=== PATIENT | female | born 1940 | race Caucasian/White ===

== ENCOUNTER 2016-07-10 09:57 | Outpatient (CLI) | payer OTHER ==
[~2016-07-10 09:57] MED LIST: CORDARONE200 MG PO; LOPRESSOR25 MG PO; ONDANSETRON4 MG/2 ML IV; VICODIN EQUIVAL1 TAB PO; XARELTO10 MG PO
--- NOTE | 2016-07-10 11:37 | DIAGNOSTIC IMAGING REPORT ---
PROCEDURE: MG BILATERAL SCREENING W/CAD INDICATION: Screening. Baseline. TECHNIQUE: Bilateral CC and MLO digital views. COMPARISON: None. FINDINGS: Computer-aided detection applied. Moderately dense. Left axillary pacemaker obscures axillary tissues. No evidence of mass or suspicious calcification. IMPRESSION: 1. Negative mammogram RESULT CODE: 1- Negative. A. A negative report should not delay biopsy if a dominant or clinically suspicious mass is present. 10-15% of cancers are not identified by x-ray. B. A negative report may reinforce clinical impression. C. Adenosis and dense breasts may obscure an underlying neoplasm. D. False positive reports average 6-10%. E.. A yearly screening mammogram is recommended. A reminder letter will be scheduled.
== END 2016-07-10 23:00 ==
LOC: MAM SRH 09:57
DX: Z12.31 Encounter for screening mammogram for malignant neoplasm of breast (principal)

== ENCOUNTER 2016-08-31 04:23 | Inpatient (IN) | payer OTHER ==
[~2016-08-31] VITALS: Ht 167.6 cm; Wt 72.3 kg
--- NOTE | 2016-08-31 07:13 | DIAGNOSTIC IMAGING REPORT ---
PROCEDURE: XR CHEST 1 VIEW INDICATION: COUGH TECHNIQUE: Portable AP view 05:12 a.m. COMPARISON: Chest x-ray 08/30/2016 FINDINGS: Dual lead pacemaker with mild cardiomegaly. Mild pulmonary vascular congestion with new mild alveolar opacities throughout both lungs. Tortuous aorta. Stable right paratracheal soft tissue density. Bones are unremarkable. IMPRESSION: 1. Cardiomegaly with pulmonary vascular congestion and new mild bilateral alveolar opacities suggestive of edema versus pneumonia. Correlate clinically. 2. Pacemaker
--- NOTE | 2016-08-31 07:33 | ED ORDER SUMMARY ---
..... Patient: GAVI HARRIS OrderSheet [facility] VisitID: [id number] [place] [address] 76y, F Registration Date/Time: 08/31/2016 ORDER SHEET Weight: 74.8 kg (stated) Allergies: No Known Drug Allergy GENERAL ORDERS: CBC w Diff Urgent (04:44 08/31/2016 DDavis R.N. per protocol) (4:46 DDavis R.N.) CMP Urgent (04:44 08/31/2016 DDavis R.N. per protocol) (4:46 DDavis R.N.) Chest 1V Urgent (04:46 08/31/2016 DDavis R.N. per protocol) (Ack 5:03 SRedmond) (5:16 Paddy) PCT (Procalcitonin) Urgent (05:08 08/31/2016 Lucian STEPHENS) (Ack 5:08 SRedmond) (5:09 DDavis R.N.) Adjuster Piano Action (Continuous) (05:17 08/31/2016 Lucian STEPHENS) (Ack 5:20 SRedmond) (5:28 DDavis R.N.) BNP Urgent (05:17 08/31/2016 Lucian STEPHENS) (Ack 5:20 SRedmond) (5:27 DDavis R.N.) CPK Urgent (05:17 08/31/2016 Lucian STEPHENS) (Ack 5:20 SRedmond) (5:27 DDavis R.N.) Troponin-I Urgent (05:17 08/31/2016 Lucian STEPHENS) (Ack 5:20 SRedmond) (5:27 DDavis R.N.) PTT Urgent (05:08/31/2016 Lucian STEPHENS) (Ack 5:20 SRedmond) (5:27 DDavis R.N.) PT with INR Urgent (05:08/31/2016 Lucian STEPHENS) (Ack 5:20 SRedmond) (5:27 DDavis R.N.) Oxygen (2 L/min) (NC) (05:08/31/2016 Lucian STEPHENS) (Ack 5:20 Skylar) (5:27 DDavis R.N.) Pulse oximeter (05:17 08/31/2016 Lucian STEPHENS) (Ack 5:20 Skylar) (5:27 DDavis R.N.) EKG - ER Stat (05:17 08/31/2016 Lucian STEPHENS) (Ack 5:20 Skylar) (5:27 DDavis R.N.) UA-Culture if indicated Urgent (06:08 08/31/2016 DDavis R.N. per protocol) (6:08 DDavis R.N.) Rapid Influenza Screen (Nasal Pharyngeal) (pharmacy technician inpatient) Urgent (07:31 08/31/2016 Lucian STEPHENS) (7:47 LWhalen R.N.) CT Abd/Pel wo Cont Urgent (08:12 08/31/2016 Yaritza verbal order read back to Radha Malik) (Ack 8:28 Yaritza) (8:59 LWhalen R.N.) Blood Culture (No) (N/A) Urgent (08:38 08/31/2016 Lucian STEPHENS) (Ack 8:45 Yaritza) (9:15 Yaritza) MEDICATION ORDERS: Albuterol Neb w Atrovent 1 unit dose (NOW) (04:40 08/31/2016 DDavis R.N. per protocol) (4:55 ASingh) IV FLUIDS: IV Saline Lock (04:41 08/31/2016 DDavis R.N. per protocol) (4:46 DDavis R.N.) Lasix IV 20 mg (NOW) (05:44 08/31/2016 Lucian STEPHENS) (Ack 5:44 DDavis R.N.) (5:55 DDavis R.N.) Ceftriaxone IV 2 gm/50mL (NOW) (08:37 08/31/2016 Lucian STEPHENS) Zithromax IV 500 mg/250 mL (NOW) (08:38 08/31/2016 Lucian STEPHENS) ORDER SHEET NOTES: Reason for Study: CHF [Electronically signed by Genoveva Benjamin R.N. (09:54 08/31/2016)] [Electronically signed by Howie Garcia MD (21:17 09/04/2016)] [Electronically locked/signed by Genoveva Benjamin R.N. (09:54 08/31/2016)]
--- NOTE | 2016-08-31 07:33 | ED ORDER SUMMARY ---
..... Patient: GAVI HARRIS OrderSheet [facility] VisitID: [id number] [place] [address] 76y, F Registration Date/Time: 08/31/2016 ORDER SHEET Weight: 74.8 kg (stated) Allergies: No Known Drug Allergy GENERAL ORDERS: CBC w Diff Urgent (04:44 08/31/2016 DDavis R.N. per protocol) (4:46 DDavis R.N.) CMP Urgent (04:44 08/31/2016 DDavis R.N. per protocol) (4:46 DDavis R.N.) Chest 1V Urgent (04:46 08/31/2016 DDavis R.N. per protocol) (Ack 5:03 SRedmond) (5:16 Paddy) PCT (Procalcitonin) Urgent (05:08 08/31/2016 Lucian STEPHENS) (Ack 5:08 SRedmond) (5:09 DDavis R.N.) Stock Trader (Continuous) (05:17 08/31/2016 Lucian SETPHENS) (Ack 5:20 SRedmond) (5:28 DDavis R.N.) BNP Urgent (05:17 08/31/2016 Lucian STEPHENS) (Ack 5:20 SRedmond) (5:27 DDavis R.N.) CPK Urgent (05:17 08/31/2016 Lucian STEPHENS) (Ack 5:20 SRedmond) (5:27 DDavis R.N.) Troponin-I Urgent (05:17 08/31/2016 Lucian STEPHENS) (Ack 5:20 SRedmond) (5:27 DDavis R.N.) PTT Urgent (05:08/31/2016 Lucian STEPHENS) (Ack 5:20 SRedmond) (5:27 DDavis R.N.) PT with INR Urgent (05:08/31/2016 Lucian STEPHENS) (Ack 5:20 SRedmond) (5:27 DDavis R.N.) Oxygen (2 L/min) (NC) (05:08/31/2016 Lucina STEPHENS) (Ack 5:20 Skylar) (5:27 DDavis R.N.) Pulse oximeter (05:17 08/31/2016 Lucian STEPHENS) (Ack 5:20 Skylar) (5:27 DDavis R.N.) EKG - ER Stat (05:17 08/31/2016 Lucian STEPHENS) (Ack 5:20 Skylar) (5:27 DDavis R.N.) UA-Culture if indicated Urgent (06:08 08/31/2016 DDavis R.N. per protocol) (6:08 DDavis R.N.) Rapid Influenza Screen (Nasal Pharyngeal) (inpatient pharmacist) Urgent (07:31 08/31/2016 Lucian STEPHENS) (7:47 LWhalen R.N.) CT Abd/Pel wo Cont Urgent (08:12 08/31/2016 Yaritza verbal order read back to Radha Malik) (Ack 8:28 Yaritza) (8:59 LWhalen R.N.) Blood Culture (No) (N/A) Urgent (08:38 08/31/2016 Lucian STEPHENS) (Ack 8:45 Yaritza) (9:15 Yartiza) MEDICATION ORDERS: Albuterol Neb w Atrovent 1 unit dose (NOW) (04:40 08/31/2016 DDavis R.N. per protocol) (4:55 ASingh) IV FLUIDS: IV Saline Lock (04:41 08/31/2016 DDavis R.N. per protocol) (4:46 DDavis R.N.) Lasix IV 20 mg (NOW) (05:44 08/31/2016 Lucian STEPHENS) (Ack 5:44 DDavis R.N.) (5:55 DDavis R.N.) Ceftriaxone IV 2 gm/50mL (NOW) (08:37 08/31/2016 Lucian STEPHENS) Zithromax IV 500 mg/250 mL (NOW) (08:38 08/31/2016 Lucian STEPHENS) ORDER SHEET NOTES: Reason for Study: CHF [Electronically signed by Genoveva Benjamin R.N. (09:54 08/31/2016)] [Electronically signed by Howie Garcia MD (21:17 09/04/2016)] [Electronically locked/signed by Genoveva Benjamin R.N. (09:54 08/31/2016)]
--- NOTE | 2016-08-31 07:33 | ED CLINICAL REPORT ---
Clinical Report - Physicians/[facility] Levels [facility] [address] [place] [address] 08/31/2016 4:23 Patient: GAVI HARRIS Time Seen: 04:41. Arrived- By private vehicle. Historian- patient. HISTORY OF PRESENT ILLNESS Chief Complaint: COUGH. This started several days ago and is still present. It was gradual in onset and has been constant and waxing/waning. The illness is described as moderate. The patient has had thick, white sputum, a cough, nasal congestion and a nasal discharge. No difficulty breathing, chest discomfort or pain or chills. She has had fever (yesterday). Recent medical care: The patient was seen recently at another facility in a clinic. Seen for similar symptoms. ( seen by Dr. Pagan yesterday). REVIEW OF SYSTEMS No chills, sweats, calf pain, palpitations or abdominal pain. No black stools, bloody stools, constipation, diarrhea or urinary problems. She has had fever (yesterday). She has had mild vomiting. The vomiting was post-tussive. she complains of L inguinal strain with coughing. All systems otherwise negative, except as recorded above. PAST HISTORY Medications: Xarelto Oral. Amiodarone HCL Oral (1 tab daily, pt unsure of dose ). Metoprolol Tartrate Oral (2 tabs, patient unsure of dose ). Allergies: No Known Drug Allergy. SOCIAL HISTORY Never smoker. FAMILY HISTORY Denies family medical history. ADDITIONAL NOTES The nursing notes have been reviewed. PHYSICAL EXAM Vital Signs: 08/31/2016 04:34 BP: 147/74. HR: 83. RR: 28. O2 saturation: 92%. Temp: 101.5 F. Pain level now: 0/10. Have been reviewed. Appearance: Alert. Eyes: Pupils equal, round and reactive to light. ENT: Pharynx normal. Neck: Normal inspection. Neck supple. No JVD. CVS: 3/6 systolic murmur. Respiratory: Decreased breath sounds. Wheezing present. Abdomen: Soft and nontender. No organomegaly. Back: Normal inspection. Skin: Skin warm and dry. Normal skin color. Normal skin turgor. Extremities: Extremities exhibit normal ROM. No calf tenderness. No lower extremity edema. LABS, X-RAYS, AND EKG EKG: Ventricular paced rhythm. EKG unchanged when compared with prior EKG. (20 Jan 2015). Chest X-ray: (IMPRESSION: 1. Cardiomegaly with pulmonary vascular congestion and new mild bilateral alveolar opacities suggestive of edema versus pneumonia. Correlate clinically. 2. Pacemaker). The X-rays were interpreted by the radiologist and contemporaneously by me. A comparison with prior films reveals that the findings are unchanged (08/30/16 - ordered by Dr. Pagan). Laboratory Tests: UA-Culture if indicated: (ELMA: 08/31/2016 06:00) ( MsgRcvd 08/31/2016 06:19) Final results Test Result Flag Units (Reference) URINE COLOR YELLOW URINE APPEARANCE CLEAR URINE GLUCOSE NEGATIVE (NEGATIVE) URINE BILIRUBIN NEGATIVE (NEGATIVE) URINE KETONE NEGATIVE (NEGATIVE) URINE SPECIFIC GRAVITY 1.020 (1.010-1.030) URINE PH 6.0 (5.0-8.0) URINE PROTEIN TRACE (NEGATIVE) URINE UROBILINOGEN 0.2 EU/dL (0.2-1.0) URINE NITRITE NEGATIVE (NEGATIVE) URINE BLOOD 1+ (NEGATIVE) URINE LEUK ESTERASE POSITIVE (NEGATIVE) URINE RBC 1-3 rbc/hpf (0-1) URINE WBC 1-3 wbc/hpf (0-1) URINE EPITHELIAL CELLS 1-3 EPI/hpf (0-5) URINE BACTERIA FEW (1+) (NONE SEEN) URINE COMMENT CULTURE INDICATED URINE CULTURES ARE SET-UP BASED ON THE FOLLOWING CRITERIA:POSITIVE NITRITEPOSITIVE LEUKOCYTE ESTERASEGREATER THAN 10 WHITE BLOOD CELLSMODERATE (2+) OR GREATER BACTERIA CBC w Diff: (ELMA: 08/31/2016 04:40) ( MsgRcvd 08/31/2016 04:57) Final results Test Result Flag Units (Reference) WHITE BLOOD COUNT 5.3 K/uL (4.5-11.5) RED BLOOD COUNT 4.58 M/uL (4.00-5.20) HEMOGLOBIN 13.3 gm/dL (12.0-16.0) HEMATOCRIT 40.3 % (36.0-46.0) MEAN CELL VOLUME 88 fL (80-100) MEAN CORPUSCULAR HGB 29 pg (26-34) MEAN CORPUSCULAR HGB CONC 33 g/dL (31-37) RED CELL DISTRIBUTION WIDTH 14.6 % (11.6-14.8) PLATELET COUNT 158 K/uL (150-400) NEUTROPHIL % 79.3 H % (50-75) LYMPH % 11.6 L % (25-40) MONO % 8.3 % (3-14) EOSINOPHIL % 0.6 % (0-4) BASOPHIL % 0.2 % (0-2) PT with INR: (ELMA: 08/31/2016 04:40) ( [facility] 08/31/2016 05:28) Final results Test Result Flag Units (Reference) INR 1.0 (0.8-1.2) Low Intensity Therapy: INR 1.5-2.0 PT range 18.5-23.1Mod.Intensity Therapy: INR 2.0-3.0 PT range 23.1-31.5High Intensity Therapy: INR 2.5-3.5 PT range 27.4-35.5High Intensity Therapy 2: INR 3.0-4.0 PT range 31.5-39.3 APTT 28 SECONDS (24-34) BNP: (ELMA: 08/31/2016 04:40) ( [facility] 08/31/2016 05:39) Final results Test Result Flag Units (Reference) B-TYPE NATRIURETIC PEPTIDE 1140 H pg/ml (5-100) CPK: (ELMA: 08/31/2016 04:40) ( [facility] 08/31/2016 05:37) Final results Test Result Flag Units (Reference) CPK 214 U/L (24-260) TROPONIN I <0.05 ng/mL (0.00-1.5) TROPONIN REFERENCE RANGE:<0.1 NEGATIVE0.1-1.5 INDETERMINANT>1.5 POSITIVE [id number]: (ELMA: 08/31/2016 04:40) ( MsgRcvd 08/31/2016 05:38) Final results Test Result Flag Units (Reference) PROCALCITONIN <0.5 ng/mL (0-0.5) PCT Concentration: Interpretation : Risk/option for action PCT <=0.5 ng/mL : Systemic : Low risk forinfection(sepsis): progression to severeis not likely. : systemic infection.Local bacterial : CAUTION-PCT levelsinfection is : below 0.5 ng/mL do notpossible. : exclude an infection,because localizedinfections (withoutsystemic signs) may beassociated with suchlow levels. If PCT ismeasured very earlyafter a bacterialchallenge (usually <6hours), these valuesmay still be low. Inthis case PCT shouldbe re-assessed 6-24hours later. PCT >0.5 and : Systemic infection: Moderate risk for<= 2 ng/mL : (sepsis) is : progression to severepossible, but : systemic infection.other conditions : The patient should beare known to : closely monitoredelevate PCT. : both clinically andby re-assessing PCTwithin 6-24 hours. PCT > 2 ng/mL : Systemic infection: High risk for(sepsis) is likely: progression to severeunless other : systemic infection.causes are known. : PCT >= 10 ng/mL : Important systemic: High likelihood ofinflammatory : severe sepsis orresponse, almost : septic shock.exclusively due to:severe bacterial :sepsis or septic :shock. : CMP: (ELMA: 08/31/2016 04:40) ( MsgRcvd 08/31/2016 05:04) Final results Test Result Flag Units (Reference) GLUCOSE 140 H mg/dL (70-110) BUN 11 mg/dL (7-18) CREATININE 0.7 mg/dL (0.6-1.3) Estimated GFR >60 mL/min Estimated GFR- >60 mL/min Note: Persistent reduction over 3 months in eGFR<60 mL/min/1.73 m2 defines CKD. Patients with eGFR values>=60 mL/min/1.73 m2 may also have CKD if evidence ofpersistent proteinuria. Additional information may be foundat www.kidney.org. SODIUM 140 mmol/L (136-145) POTASSIUM 3.5 mmol/L (3.5-5.1) CHLORIDE 104 mmol/L (98-107) CARBON DIOXIDE 27 mmol/L (21-32) CALCIUM 8.7 mg/dL (8.5-10.1) TOTAL PROTEIN 7.1 g/dL (6.4-8.2) ALBUMIN 3.3 g/dL (3.3-5.0) BILIRUBIN, TOTAL 0.6 mg/dL (0.0-1.0) ALKALINE PHOSPHATASE 77 U/L (46-116) AST (SGOT) 20 U/L (15-37) ALT (SGPT) 22 U/L (12-78) Rapid Influenza Screen: (ELMA: 08/31/2016 07:40) ( MsgRcvd 08/31/2016 08:00) Final results SPECIMEN DESCRIPTION: DESK INTERVIEWER Test Result Flag Units (Reference) RAPID INFLUENZA SCREEN DATE: 08/31/16 INFLUENZA A: NEGATIVE SCREEN FOR INFLUENZA A INFLUENZA B: NEGATIVE SCREEN FOR INFLUENZA B . PROGRESS AND PROCEDURES Discussed case with patient's primary care provider, (Latasha). Reviewed test results and need for additional work-up. Agreed upon treatment plan, need for patient follow-up and decision to admit. Health care provider will see patient in ED. Patient/family counseled. Old medical records reviewed. Disposition: Admitted. CLINICAL IMPRESSION Congestive heart failure. Pneumonia. (Electronically signed by Howie Garcia MD 09/04/2016 21:17)
--- NOTE | 2016-08-31 07:33 | ED NURSING NOTES ---
Clinical Report - Nurses [facility] [address] [place] [address] 08/31/2016 4:23 Patient: GAVI HARRIS TRIAGE Triage time 04:28. --04:31 Benjamin Haro R.N. Acuity: LEVEL 3. Chief Complaint: (coughing since "Saturday"). Alert. ESPERANZA COMA SCORE: [place] Coma Scale: 15- eyes open spontaneously (4); best verbal response- oriented x 4 (5); best motor response- obeys commands (6). --04:37 Benjamin Haro R.N. 04:34 08/31/16. BP: 147/74. HR: 83. RR: 28 (regular and labored). O2 saturation: 92%. Temp: 101.5 F (oral). Pain level now: 0/10. --04:37 Benjamin Haro R.N. Weight: 74.8 kg stated. Height/Length: 64 inches Estimated. BMI: 28.3. --04:29 Benjamin Haro R.N. Medications Metoprolol Tartrate Oral 50 mg ( ). --04:30 Genoveva Benjamin R.N. Amiodarone HCL Oral (1 tab daily, pt unsure of dose ). --04:30 Benjamin Haro R.N. Xarelto Oral (Tablet 20 mg) 1 tablet. --04:32 Genoveva Benjamin R.N. Ventolin HFA Inhalation. --09:02 Genoveva Benjamin R.N. MiraLax Oral. --09:03 Genoveva Benjamin R.N. Losartan Potassium Oral 50 mg, daily. --09:03 Genoveva Benjamin R.N. FLUoxetine HCl Oral 40 mg, daily. --09:04 Genoveva Benjamin R.N. PredniSONE Oral 40 mg, daily. --09:04 Genoveva Benjamin R.N. Furosemide Oral 20 mg, daily. --09:05 Genoveva Benjamin R.N. The following entry was struck and corrected by Genoveva Benjamin R.N., 09:03 (08/31/16) Reason for correction - other(correction). <<STRICKEN ENTRY-- Xarelto Oral. --04:32 Benjamin Haro R.N. --END STRIKE>> The following entry was struck and corrected by Genoveva Benjamin R.N., 09:02 (08/31/16) Reason for correction - other(correction). <<STRICKEN ENTRY-- Metoprolol Tartrate Oral (2 tabs, patient unsure of dose ). --04:30 Benjamin Haro R.N. --END STRIKE>>. Allergies No Known Drug Allergy. --04:30 Benjamin Haro R.N. History Arrived by private vehicle. Historian: patient. Accompanied by family. --04:31 Benjamin Haro R.N. The patient has had vomiting. SOCIAL HX: Never smoker. No alcohol use or drug use. FALL RISK ASSESSMENT: Fall risk assessment completed. No fall risk identified. NUTRITIONAL RISK ASSESSMENT: The nutritional risk assessment revealed no deficiencies. FUNCTIONAL ASSESSMENT: Functional assessment: no impairments noted. LEARNING NEEDS ASSESSMENT: The learning needs assessment revealed no barriers. SKIN INTEGRITY ASSESSMENT: Skin integrity risk assessment completed. No skin integrity risk identified. --04:37 Benjamin Haro R.N. ( Patient states that she has been coughing so much that the coughing is starting to make her vomit). --04:38 Benjamin Haro R.N. PROBLEMS: Diarrhea. Pulmonary Embolism. Chest Pain. Gastroesophageal Reflux. Pacemaker. Atrial Fibrillation. Hypertension. --04:31 Benjamin Haro R.N. DVT - Deep Venous Thrombosis. --04:31 Benjamin Haro R.N. ADDITIONAL SURGERIES: . Knee Surgery. Pace maker implant . --04:31 Benjamin Haro R.N. Interventions ID band on patient. To treatment room. --04:37 Benjamin Haro R.N. PHYSICAL ASSESSMENT To room via wheelchair. GENERAL / NEURO / PSYCH: Alert. Oriented X 4. RESPIRATORY: Mild respiratory distress. Decreased breath sounds diffusely over both lungs. Expiratory and inspiratory bilateral wheezes diffusely. CVS: Capillary refill less than 2 seconds. SKIN: Skin is warm and dry. --04:39 Benjamin Haro R.N. <<STRICKEN ENTRY-- ( pt states having lower left flank/abdominal pain also). --05:00 Benjamin Haro R.N. --END STRIKE>> Correction --05:04 Benjamin Haro R.N. ( After the breathing treatment. the patient states that her breathing feels better.). --05:00 Benjamin Haro R.N. ( Pt states that her left lower abdomen area hurts when she toughs, started yesterday.). --05:07 Benjamin Haro R.N. NURSING PROGRESS NOTES bus driver/monitor, pulse oximeter and NIBP monitor placed on patient. Patient gowned. Head of bed elevated. Two patient identifiers checked. Call light placed in reach. Side rails up x 1. Bed placed in lowest position. Brakes of bed on. Patient ready for evaluation- chart flagged. Patient waiting for evaluation. --04:39 Benjamin Haro R.N. 04:41 08/31/2016 Site #1 started via IV in the left antecubital space with an 20g angiocath, with aseptic technique and good blood return; one attempt. Blood drawn: rainbow set. Labeled in the presence of the patient and sent to the lab. Saline lock flushed with 10 mL saline (Started by ALEKSANDR Lamb). --04:46 Benjamin Haro R.N. EKG time: (526). EKG was ordered, performed by a tech and shown to the ED physician. --05:29 Rashad Pizarro ER Regional Coordinator ( Patient on bus driver/monitor.). --05:35 Benjamin Haro R.N. 05:50 08/31/2016 Lasix IVP 20 mg given over 2 minute(s) via site #1. Allergies verified and confirmed 5 rights. IV patency established. IV site checked: no pain, redness, or swelling. IV flushed thoroughly pre- and post-medication administration. IVP given by RN. --05:55 Benjamin Haro R.N. ( Report given to Genoveva Henry RN). --07:02 Benjamin Haro R.N. 08:30 08/31/16. BP: 134/67. HR: 79. RR: 22. O2 saturation: 96% on nasal cannula at 2 liters/minute. Temp: 99.2 F. 08:00 08/31/16. BP: 122/58. HR: 78. RR: 18. O2 saturation: 96%. 07:30 08/31/16. BP: 130/58. HR: 80. RR: 18. O2 saturation: 97%. --09:17 Genoveva Benjamin R.N. 08:30 08/31/16. ( Waiting for blood cultures before antibiotics given.). --09:53 Genoveva Benjamin R.N. 09:05 08/31/16. ( Lab here to draw cultures.). --09:54 Genoveva Benjamin R.N. Intake & Output Urine, with return of 200 mL yellow-colored clear urine. --06:19 Arias Savage DISPOSITION / DISCHARGE 09:10 08/31/2016 Site #[address] upon admission; patent. Good blood return present. Converted to saline lock and flushed with 10 mL saline; flushes easily. --09:52 Genoveva Benjamin R.N. Departure time: 09:Aug 31 2016. Admitted to the Critical Care Unit. --09:52 Genoveva Benjamin R.N. 08:30 08/31/16. BP: 134/67. HR: 79. RR: 22. O2 saturation: 96% on nasal cannula at 2 liters/minute. Temp: 99.2 F. --09:52 Genoveva Benjamin R.N. Locked/Released at 08/31/2016 9:54 by Genoveva Benjamin R.N.
--- NOTE | 2016-08-31 07:33 | ED NURSING NOTES ---
Clinical Report - Nurses [facility] [address] [place] [address] 08/31/2016 4:23 Patient: GAVI HARRIS TRIAGE Triage time 04:28. --04:31 Benjamin Haro R.N. Acuity: LEVEL 3. Chief Complaint: (coughing since "Saturday"). Alert. ESPERANZA COMA SCORE: [place] Coma Scale: 15- eyes open spontaneously (4); best verbal response- oriented x 4 (5); best motor response- obeys commands (6). --04:37 Benjamin Haro R.N. 04:34 08/31/16. BP: 147/74. HR: 83. RR: 28 (regular and labored). O2 saturation: 92%. Temp: 101.5 F (oral). Pain level now: 0/10. --04:37 Benjamin Haro R.N. Weight: 74.8 kg stated. Height/Length: 64 inches Estimated. BMI: 28.3. --04:29 Benjamin Haro R.N. Medications Metoprolol Tartrate Oral 50 mg ( ). --04:30 Genoveva Benjamin R.N. Amiodarone HCL Oral (1 tab daily, pt unsure of dose ). --04:30 Benjamin Haro R.N. Xarelto Oral (Tablet 20 mg) 1 tablet. --04:32 Genoveva Benjamin R.N. Ventolin HFA Inhalation. --09:02 Genoveva Benjamin R.N. MiraLax Oral. --09:03 Genoveva Benjamin R.N. Losartan Potassium Oral 50 mg, daily. --09:03 Genoveva Benjamin R.N. FLUoxetine HCl Oral 40 mg, daily. --09:04 Genoveva Benjamin R.N. PredniSONE Oral 40 mg, daily. --09:04 Genoveva Benjamin R.N. Furosemide Oral 20 mg, daily. --09:05 Genoveva Benjamin R.N. The following entry was struck and corrected by Genoveva Benjamin R.N., 09:03 (08/31/16) Reason for correction - other(correction). <<STRICKEN ENTRY-- Xarelto Oral. --04:32 Benjamin Haro R.N. --END STRIKE>> The following entry was struck and corrected by Genoveva Benjamin R.N., 09:02 (08/31/16) Reason for correction - other(correction). <<STRICKEN ENTRY-- Metoprolol Tartrate Oral (2 tabs, patient unsure of dose ). --04:30 Benjamin Haro R.N. --END STRIKE>>. Allergies No Known Drug Allergy. --04:30 Benjamin Haro R.N. History Arrived by private vehicle. Historian: patient. Accompanied by family. --04:31 Benjamin Haro R.N. The patient has had vomiting. SOCIAL HX: Never smoker. No alcohol use or drug use. FALL RISK ASSESSMENT: Fall risk assessment completed. No fall risk identified. NUTRITIONAL RISK ASSESSMENT: The nutritional risk assessment revealed no deficiencies. FUNCTIONAL ASSESSMENT: Functional assessment: no impairments noted. LEARNING NEEDS ASSESSMENT: The learning needs assessment revealed no barriers. SKIN INTEGRITY ASSESSMENT: Skin integrity risk assessment completed. No skin integrity risk identified. --04:37 Benjamin Haro R.N. ( Patient states that she has been coughing so much that the coughing is starting to make her vomit). --04:38 Benjamin Haro R.N. PROBLEMS: Diarrhea. Pulmonary Embolism. Chest Pain. Gastroesophageal Reflux. Pacemaker. Atrial Fibrillation. Hypertension. --04:31 Benjamin Haro R.N. DVT - Deep Venous Thrombosis. --04:31 Benjamin Haro R.N. ADDITIONAL SURGERIES: . Knee Surgery. Pace maker implant . --04:31 Benjamin Haro R.N. Interventions ID band on patient. To treatment room. --04:37 Benjamin Haro R.N. PHYSICAL ASSESSMENT To room via wheelchair. GENERAL / NEURO / PSYCH: Alert. Oriented X 4. RESPIRATORY: Mild respiratory distress. Decreased breath sounds diffusely over both lungs. Expiratory and inspiratory bilateral wheezes diffusely. CVS: Capillary refill less than 2 seconds. SKIN: Skin is warm and dry. --04:39 Benjamin Haro R.N. <<STRICKEN ENTRY-- ( pt states having lower left flank/abdominal pain also). --05:00 Benjamin Haro R.N. --END STRIKE>> Correction --05:04 Benjamin Haro R.N. ( After the breathing treatment. the patient states that her breathing feels better.). --05:00 Benjamin Haro R.N. ( Pt states that her left lower abdomen area hurts when she toughs, started yesterday.). --05:07 Benjamin Haro R.N. NURSING PROGRESS NOTES radiation monitor, pulse oximeter and NIBP monitor placed on patient. Patient gowned. Head of bed elevated. Two patient identifiers checked. Call light placed in reach. Side rails up x 1. Bed placed in lowest position. Brakes of bed on. Patient ready for evaluation- chart flagged. Patient waiting for evaluation. --04:39 Benjamin Haro R.N. 04:41 08/31/2016 Site #1 started via IV in the left antecubital space with an 20g angiocath, with aseptic technique and good blood return; one attempt. Blood drawn: rainbow set. Labeled in the presence of the patient and sent to the lab. Saline lock flushed with 10 mL saline (Started by ALEKSANDR Lamb). --04:46 Benjamin Haro R.N. EKG time: (526). EKG was ordered, performed by a tech and shown to the ED physician. --05:29 Rashad Pizarro ER Clinical Care Leader ( Patient on engine monitor.). --05:35 Benjamin Haro R.N. 05:50 08/31/2016 Lasix IVP 20 mg given over 2 minute(s) via site #1. Allergies verified and confirmed 5 rights. IV patency established. IV site checked: no pain, redness, or swelling. IV flushed thoroughly pre- and post-medication administration. IVP given by RN. --05:55 Benjamin Haro R.N. ( Report given to Genoveva Henry RN). --07:02 Benjamin Haro R.N. 08:30 08/31/16. BP: 134/67. HR: 79. RR: 22. O2 saturation: 96% on nasal cannula at 2 liters/minute. Temp: 99.2 F. 08:00 08/31/16. BP: 122/58. HR: 78. RR: 18. O2 saturation: 96%. 07:30 08/31/16. BP: 130/58. HR: 80. RR: 18. O2 saturation: 97%. --09:17 Genoveva Benjamin R.N. 08:30 08/31/16. ( Waiting for blood cultures before antibiotics given.). --09:53 Genoveva Benjamin R.N. 09:05 08/31/16. ( Lab here to draw cultures.). --09:54 Genoveva Benjamin R.N. Intake & Output Urine, with return of 200 mL yellow-colored clear urine. --06:19 Arias Savage DISPOSITION / DISCHARGE 09:10 08/31/2016 Site #[address] upon admission; patent. Good blood return present. Converted to saline lock and flushed with 10 mL saline; flushes easily. --09:52 Genoveva Benjamin R.N. Departure time: 09:Aug 31 2016. Admitted to the Critical Care Unit. --09:52 Genoveva Benjamin R.N. 08:30 08/31/16. BP: 134/67. HR: 79. RR: 22. O2 saturation: 96% on nasal cannula at 2 liters/minute. Temp: 99.2 F. --09:52 Genoveva Benjamin R.N. Locked/Released at 08/31/2016 9:54 by Genoveva Benjamin R.N.
--- NOTE | 2016-08-31 07:33 | ED CLINICAL REPORT ---
Clinical Report - Physicians/Mid Levels [facility] [address] [place] [address] 08/31/2016 4:23 Patient: GAVI HARRIS Time Seen: 04:41. Arrived- By private vehicle. Historian- patient. HISTORY OF PRESENT ILLNESS Chief Complaint: COUGH. This started several days ago and is still present. It was gradual in onset and has been constant and waxing/waning. The illness is described as moderate. The patient has had thick, white sputum, a cough, nasal congestion and a nasal discharge. No difficulty breathing, chest discomfort or pain or chills. She has had fever (yesterday). Recent medical care: The patient was seen recently at another facility in a clinic. Seen for similar symptoms. ( seen by Dr. Pagan yesterday). REVIEW OF SYSTEMS No chills, sweats, calf pain, palpitations or abdominal pain. No black stools, bloody stools, constipation, diarrhea or urinary problems. She has had fever (yesterday). She has had mild vomiting. The vomiting was post-tussive. she complains of L inguinal strain with coughing. All systems otherwise negative, except as recorded above. PAST HISTORY Medications: Xarelto Oral. Amiodarone HCL Oral (1 tab daily, pt unsure of dose ). Metoprolol Tartrate Oral (2 tabs, patient unsure of dose ). Allergies: No Known Drug Allergy. SOCIAL HISTORY Never smoker. FAMILY HISTORY Denies family medical history. ADDITIONAL NOTES The nursing notes have been reviewed. PHYSICAL EXAM Vital Signs: 08/31/2016 04:34 BP: 147/74. HR: 83. RR: 28. O2 saturation: 92%. Temp: 101.5 F. Pain level now: 0/10. Have been reviewed. Appearance: Alert. Eyes: Pupils equal, round and reactive to light. ENT: Pharynx normal. Neck: Normal inspection. Neck supple. No JVD. CVS: 3/6 systolic murmur. Respiratory: Decreased breath sounds. Wheezing present. Abdomen: Soft and nontender. No organomegaly. Back: Normal inspection. Skin: Skin warm and dry. Normal skin color. Normal skin turgor. Extremities: Extremities exhibit normal ROM. No calf tenderness. No lower extremity edema. LABS, X-RAYS, AND EKG EKG: Ventricular paced rhythm. EKG unchanged when compared with prior EKG. (20 Jan 2015). Chest X-ray: (IMPRESSION: 1. Cardiomegaly with pulmonary vascular congestion and new mild bilateral alveolar opacities suggestive of edema versus pneumonia. Correlate clinically. 2. Pacemaker). The X-rays were interpreted by the radiologist and contemporaneously by me. A comparison with prior films reveals that the findings are unchanged (08/30/16 - ordered by Dr. Pagan). Laboratory Tests: UA-Culture if indicated: (ELMA: 08/31/2016 06:00) ( MsgRcvd 08/31/2016 06:19) Final results Test Result Flag Units (Reference) URINE COLOR YELLOW URINE APPEARANCE CLEAR URINE GLUCOSE NEGATIVE (NEGATIVE) URINE BILIRUBIN NEGATIVE (NEGATIVE) URINE KETONE NEGATIVE (NEGATIVE) URINE SPECIFIC GRAVITY 1.020 (1.010-1.030) URINE PH 6.0 (5.0-8.0) URINE PROTEIN TRACE (NEGATIVE) URINE UROBILINOGEN 0.2 EU/dL (0.2-1.0) URINE NITRITE NEGATIVE (NEGATIVE) URINE BLOOD 1+ (NEGATIVE) URINE LEUK ESTERASE POSITIVE (NEGATIVE) URINE RBC 1-3 rbc/hpf (0-1) URINE WBC 1-3 wbc/hpf (0-1) URINE EPITHELIAL CELLS 1-3 EPI/hpf (0-5) URINE BACTERIA FEW (1+) (NONE SEEN) URINE COMMENT CULTURE INDICATED URINE CULTURES ARE SET-UP BASED ON THE FOLLOWING CRITERIA:POSITIVE NITRITEPOSITIVE LEUKOCYTE ESTERASEGREATER THAN 10 WHITE BLOOD CELLSMODERATE (2+) OR GREATER BACTERIA CBC w Diff: (ELMA: 08/31/2016 04:40) ( MsgRcvd 08/31/2016 04:57) Final results Test Result Flag Units (Reference) WHITE BLOOD COUNT 5.3 K/uL (4.5-11.5) RED BLOOD COUNT 4.58 M/uL (4.00-5.20) HEMOGLOBIN 13.3 gm/dL (12.0-16.0) HEMATOCRIT 40.3 % (36.0-46.0) MEAN CELL VOLUME 88 fL (80-100) MEAN CORPUSCULAR HGB 29 pg (26-34) MEAN CORPUSCULAR HGB CONC 33 g/dL (31-37) RED CELL DISTRIBUTION WIDTH 14.6 % (11.6-14.8) PLATELET COUNT 158 K/uL (150-400) NEUTROPHIL % 79.3 H % (50-75) LYMPH % 11.6 L % (25-40) MONO % 8.3 % (3-14) EOSINOPHIL % 0.6 % (0-4) BASOPHIL % 0.2 % (0-2) PT with INR: (ELMA: 08/31/2016 04:40) ( [facility] 08/31/2016 05:28) Final results Test Result Flag Units (Reference) INR 1.0 (0.8-1.2) Low Intensity Therapy: INR 1.5-2.0 PT range 18.5-23.1Mod.Intensity Therapy: INR 2.0-3.0 PT range 23.1-31.5High Intensity Therapy: INR 2.5-3.5 PT range 27.4-35.5High Intensity Therapy 2: INR 3.0-4.0 PT range 31.5-39.3 APTT 28 SECONDS (24-34) BNP: (ELMA: 08/31/2016 04:40) ( [facility] 08/31/2016 05:39) Final results Test Result Flag Units (Reference) B-TYPE NATRIURETIC PEPTIDE 1140 H pg/ml (5-100) CPK: (ELMA: 08/31/2016 04:40) ( [facility] 08/31/2016 05:37) Final results Test Result Flag Units (Reference) CPK 214 U/L (24-260) TROPONIN I <0.05 ng/mL (0.00-1.5) TROPONIN REFERENCE RANGE:<0.1 NEGATIVE0.1-1.5 INDETERMINANT>1.5 POSITIVE [id number]: (ELMA: 08/31/2016 04:40) ( MsgRcvd 08/31/2016 05:38) Final results Test Result Flag Units (Reference) PROCALCITONIN <0.5 ng/mL (0-0.5) PCT Concentration: Interpretation : Risk/option for action PCT <=0.5 ng/mL : Systemic : Low risk forinfection(sepsis): progression to severeis not likely. : systemic infection.Local bacterial : CAUTION-PCT levelsinfection is : below 0.5 ng/mL do notpossible. : exclude an infection,because localizedinfections (withoutsystemic signs) may beassociated with suchlow levels. If PCT ismeasured very earlyafter a bacterialchallenge (usually <6hours), these valuesmay still be low. Inthis case PCT shouldbe re-assessed 6-24hours later. PCT >0.5 and : Systemic infection: Moderate risk for<= 2 ng/mL : (sepsis) is : progression to severepossible, but : systemic infection.other conditions : The patient should beare known to : closely monitoredelevate PCT. : both clinically andby re-assessing PCTwithin 6-24 hours. PCT > 2 ng/mL : Systemic infection: High risk for(sepsis) is likely: progression to severeunless other : systemic infection.causes are known. : PCT >= 10 ng/mL : Important systemic: High likelihood ofinflammatory : severe sepsis orresponse, almost : septic shock.exclusively due to:severe bacterial :sepsis or septic :shock. : CMP: (ELMA: 08/31/2016 04:40) ( MsgRcvd 08/31/2016 05:04) Final results Test Result Flag Units (Reference) GLUCOSE 140 H mg/dL (70-110) BUN 11 mg/dL (7-18) CREATININE 0.7 mg/dL (0.6-1.3) Estimated GFR >60 mL/min Estimated GFR- >60 mL/min Note: Persistent reduction over 3 months in eGFR<60 mL/min/1.73 m2 defines CKD. Patients with eGFR values>=60 mL/min/1.73 m2 may also have CKD if evidence ofpersistent proteinuria. Additional information may be foundat www.kidney.org. SODIUM 140 mmol/L (136-145) POTASSIUM 3.5 mmol/L (3.5-5.1) CHLORIDE 104 mmol/L (98-107) CARBON DIOXIDE 27 mmol/L (21-32) CALCIUM 8.7 mg/dL (8.5-10.1) TOTAL PROTEIN 7.1 g/dL (6.4-8.2) ALBUMIN 3.3 g/dL (3.3-5.0) BILIRUBIN, TOTAL 0.6 mg/dL (0.0-1.0) ALKALINE PHOSPHATASE 77 U/L (46-116) AST (SGOT) 20 U/L (15-37) ALT (SGPT) 22 U/L (12-78) Rapid Influenza Screen: (ELMA: 08/31/2016 07:40) ( MsgRcvd 08/31/2016 08:00) Final results SPECIMEN DESCRIPTION: LITHOGRAPHIC PHOTOGRAPHER Test Result Flag Units (Reference) RAPID INFLUENZA SCREEN DATE: 08/31/16 INFLUENZA A: NEGATIVE SCREEN FOR INFLUENZA A INFLUENZA B: NEGATIVE SCREEN FOR INFLUENZA B . PROGRESS AND PROCEDURES Discussed case with patient's primary care provider, (Latasha). Reviewed test results and need for additional work-up. Agreed upon treatment plan, need for patient follow-up and decision to admit. Health care provider will see patient in ED. Patient/family counseled. Old medical records reviewed. Disposition: Admitted. CLINICAL IMPRESSION Congestive heart failure. Pneumonia. (Electronically signed by Howie Garcia MD 09/04/2016 21:17)
--- NOTE | 2016-08-31 08:28 | Progress Note ---
Subjective General Patient is a 76 yo female with cough, n/v, chf hx, and fever presents with LLQ pain, cough worse this am, n/v. Admitted ? HIRAM pneumonia, groin pain, chf mild Treat with home meds, lasix, abx
[2016-08-31 09:27] VITALS: BP 131/61
--- NOTE | 2016-08-31 09:31 | HISTORY AND PHYSICAL ---
ADMITTED: 08/31/2016 CHIEF COMPLAINT: 1. Abdominal pain 2. Cough 3. Fever 4. Shortness of breath 5. Weakness HISTORY OF PRESENT ILLNESS: The patient is a 76-year-old female who has had some progressive cough and weakness over the last few days. However, she had been treated with a little extra Lasix for some mild congestive heart failure seen on chest x-ray as an outpatient. Last p.m. she started having worse cough and severe left lower abdominal pain, nausea, vomiting, and she came into the emergency department for her symptoms this morning. MEDICAL/SURGICAL HISTORY: Past medical history: She has had congestive heart failure, atrial fibrillation with wheezing, abdominal pain, rales, osteoarthritis, anxiety, hyperlipidemia, constipation, hair loss, fatigue, pulmonary embolism. She uses a Xarelto for anticoagulation and depression. Past surgical history: She has had a pacemaker in 2016. MEDICATIONS: 1. Furosemide 20 mg daily, just started last night. 2. Also prednisone 40 mg daily for 4 days for possible chronic obstructive pulmonary disease with her cough. 3. Fluoxetine 20 mg 2 p.o. daily. 4. Losartan 50 mg p.o. daily. 5. Xarelto 20 mg daily. 6. MiraLAX 17 g p.o. daily. 7. Ventolin 2 puffs q.4 hours p.r.n. shortness breath. 8. Metoprolol 50 mg p.o. XL daily. ALLERGIES: 1. NONE KNOWN. SOCIAL HISTORY: She has a significant other, , LDS in [place]. I am her primary doctor. She does not use any drugs or alcohol and she is a nonsmoker. She has had secondhand smoke exposure in the past. FAMILY HISTORY: Parents of age-related problems, otherwise noncontributory. REVIEW OF SYSTEMS: Notable for this cough, a little fever. She has had the nausea, vomiting, and severe left lower abdominal pain, worse with coughing, in her groin and pelvis region. She denies any active bleeding or bruising issues. PHYSICAL EXAMINATION: GENERAL: She is an alert female who appears to be okay as far as comfort. She is talking in full sentences. She holds on to her left lower abdomen when describing her pain. She is mostly speaks Peruvian with me as she is fluent in Upper Sorbian and Peruvian and does well in Bangladeshi, but not quite as well. VITAL SIGNS: Blood pressure of 147/74, heart rate of 83, respirations 28, saturating 92% on room air, temperature is 101.5. HEENT: Extraocular movements intact. Pupils equal, round, and reactive to light. Oropharynx is clear with moist mucous membranes. NECK: Supple without lymphadenopathy. LUNGS: Coarse breath sounds, occasional crackles, a little bit increased at the bases. HEART: Regular rate and rhythm with a 3/6 systolic ejection murmur. ABDOMEN: Soft. It is tender to palpation in the left lower abdomen, upper pelvic region. GENITOURINARY: Deferred. RECTAL: Deferred. BREAST: Deferred. NEUROLOGIC: Cranial nerves II-XII intact. Strength and sensation grossly intact. LAB/IMAGING: Her EKG shows a left bundle branch block and nonspecific ST changes and irregular heart rate. Her chest x-ray shows cardiomegaly with some pulmonary vascular congestion, mild and also there is some bilateral alveolar opacities suggestive of edema or pneumonia as well as her pacemaker. Urinalysis is positive for leukocyte esterase, a little bit of blood as well. BNP of 1140. CPK and troponin I are normal at less than 0.05 and 214 for the CPK. Her PT/INR is 1.0 and PTT of 28. Procalcitonin less than 0.5, glucose 140, BUN of 11, creatinine 0.7, sodium 140, potassium 3.5, chloride of 104, HC03 27, calcium 8.7, total protein 7.1, albumin 3.3, total bilirubin 0.6, alkaline phosphatase 77, AST of 20, ALT of 22. CBC: White count of 5.3, hematocrit 40.3, platelets of 158. Influenza screen is negative for A and B. IMPRESSION: 1. This is a 76-year-old female with a known history of congestive heart failure, left bundle branch block, and some congestive heart failure in the past, who presents with increasing cough and then nausea, vomiting, and fever. She has possible new infiltrates on her chest x-ray. PLAN: 1. Check her CT to rule out hernia or diverticulitis in her left lower abdomen. 2. Treat her for pneumonia with azithromycin and ceftriaxone. 3. We will continue with her home medications. Increase Lasix slightly. 4. We will continue to monitor her on her respiratory status and treat with inhalation treatments for some mild wheezing that she has had 5. Continue with a little bit of prednisone for a little bit of possible chronic obstructive pulmonary disease changes. 6. Continue with her home medications with Xarelto as well for her atrial fibrillation.
--- NOTE | 2016-08-31 09:46 | DIAGNOSTIC IMAGING REPORT ---
PROCEDURE: CT ABDOMEN/PELVIS W/O CONTRAST INDICATION: Left lower quadrant pain. TECHNIQUE: Noncontrast axial images were obtained of the entire abdomen and pelvis with sagittal and coronal reformations. COMPARISON: Chest x-ray 08/31/2016. FINDINGS: ABDOMEN: Mild bilateral perihilar infiltrates with mild cardiomegaly but no pleural effusions. Pacemaker. Liver, gallbladder, pancreas, spleen, adrenal glands and the kidneys are normal. Mild atherosclerosis. Nonspecific bowel gas pattern. Small hiatal hernia. PELVIS: Normal appendix. Uterus, adnexa and bladder are normal. No inflammatory changes or free fluid. No evidence of a ventral hernia. Mild degenerative changes of the spine. IMPRESSION: 1. Cardiomegaly with pacemaker 2. Mild bilateral perihilar infiltrates which suggestive of pneumonia. Pulmonary edema is less likely. Correlate clinically 3. Hiatal hernia 4. Results discussed with Dr. Pagan All CT scans at this facility use dose modulation, iterative reconstruction, and/or weight-based dosing when appropriate to reduce radiation dose to as low as reasonably achievable.
[2016-08-31 10:00] VITALS: BP 131/61
[2016-08-31 14:58] VITALS: BP 97/48
[2016-08-31] MEDS ORDERED: METOPROLOL SUCC50 MG PO (17:07)
[2016-08-31] MEDS ORDERED: AMIODARONE HCL200 MG PO (17:11)
[2016-08-31] MEDS ORDERED: XARELTO10 MG PO (17:12)
[2016-08-31] MEDS ORDERED: VENTOLIN IN (17:13)
[2016-08-31 17:44] VITALS: BP 122/60
--- NOTE | 2016-08-31 17:46 | DIAGNOSTIC IMAGING REPORT ---
REFERRING PHYSICIAN/PROVIDER: Owen Pagan MD CONSULTING ROLL CUTTING OPERATOR: Mark Kaur MD INDICATION: CHF Procedure: A two-dimensional transthoracic echocardiogram with color flow and Doppler was performed. The study quality was technically adequate. The patient was in normal sinus rhythm during the exam. Left Ventricle: The left ventricle is normal in size. There is moderate asymmetric left ventricular hypertrophy. There is moderate proximal septal thickening noted. The interventricular septum measures at 1.8 cm. 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 The LVOT velocity is 6.0 m/s. Left ventricular systolic function is mildly reduced. The ejection fraction is estimated to be 45-50%. There is hypokinesis at the mid inferior wall and most of the septum is hypokinetic to akinetic. Diastolic function could not be accurately assessed due to confounding valvular disease. Right Ventricle: The right ventricle is normal in size and function. Atria: The left atrium is severely dilated. The right atrium grossly appears normal in size. The interatrial septum is intact with no evidence for an atrial septal defect. Mitral Valve: The mitral valve is normal. There is mild to moderate mitral annular calcification. There is systolic anterior motion of the mitral valve. There is moderate to severe mitral regurgitation. Aortic Valve: The aortic valve is trileaflet. The aortic valve opens well. There is no aortic regurgitation. Tricuspid Valve: The tricuspid valve is normal in structure and function. There is trace tricuspid regurgitation. The right ventricular systolic pressure is estimated at 50 mmHg assuming a right atrial pressure of 3 mm Hg. Pulmonic Valve: The pulmonic valve is not well visualized. There is a trace or physiologic amount of pulmonic regurgitation. There is no other significant valvular heart disease. Great Vessels: The aortic root is normal size. The ascending aorta is mildly enlarged. It measures at 3.6 cm. The IVC is of normal diameter and collapses greater than 50% with a sniff. This suggests a low right atrial pressure of 3 mm Hg. Pericardium/ Pleura There is no pericardial effusion. 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 The left ventricle is normal in size. There is moderate proximal septal thickening noted. The interventricular septum measures at 1.8 cm. 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 Left ventricular systolic function is mildly reduced. The ejection fraction is estimated to be 45-50%. There is hypokinesis at the mid inferior wall and most of the septum is hypokinetic to akinetic. The right ventricle is normal in size and function. The right ventricular systolic pressure is estimated at 50 mmHg assuming a right atrial pressure of 3 mm Hg. The left atrium is severely dilated. The right atrium grossly appears normal in size. There is mild to moderate mitral annular calcification. There is systolic anterior motion of the mitral valve. There is moderate to severe mitral regurgitation. There is no other significant valvular heart disease. The ascending aorta is mildly enlarged. It measures at 3.6 cm.
--- NOTE | 2016-08-31 19:41 | Progress Note ---
Subjective General Discussed patient and echo with her clamshell operator Dr. Weems she has hypertrophic cardiomyopathy and sometimes may worsen with furosemide. Try to treat with betablockers as she is able to tolerate.. I feel she has mostly pneumonia and will continue with IV abx.
--- NOTE | 2016-08-31 19:41 | Progress Note ---
Subjective General Discussed patient and echo with her hat marker Dr. Weems she has hypertrophic cardiomyopathy and sometimes may worsen with furosemide. Try to treat with betablockers as she is able to tolerate.. I feel she has mostly pneumonia and will continue with IV abx.
[2016-08-31 23:25] VITALS: BP 108/53
[2016-09-01 03:13] VITALS: BP 127/60
[2016-09-01 06:53] VITALS: BP 122/60
--- NOTE | 2016-09-01 09:40 | Progress Note ---
Subjective General Patient states that she is doing ok. Has a little less cough especially at night. No cp. SOB with going to [place] dropped sat to 86% per nursing. But now is doing well on a couple liters of O2. Still with lots of crackles and wheezes. Fevers less. Physical Exam Vital Signs / I&Os Vital Signs Date Time Temp Pulse Resp B/P Pulse O2 O2 Flow FiO2 Ox Delivery Rate 09/01 0653 98.4 70 15 122/60 98 Nasal 2.0 Cannula 09/01 0313 100.2 72 24 127/60 98 Nasal 2.0 Cannula 08/31 2334 2.0 08/31 2325 99.3 71 24 108/53 95 Nasal 2.0 Cannula 08/31 1945 Nasal 2.0 Cannula 08/31 1744 98.4 76 24 122/60 93 Room Air 08/31 1458 98.8 72 27 97/48 93 Room Air 08/31 1300 Nasal 2.0 Cannula 08/31 1049 78 31 98 Nasal 2.0 Cannula 08/31 1048 99.3 08/31 1000 76 29 131/61 96 Nasal 2.0 Cannula 08/31 0942 100.9 08/31 0927 77 13 131/61 96 Nasal 2.0 Cannula I&O 09/01 0000 08/31 1600 08/31 0800 Intake Total 950 360 Output Total 700 225 Balance 250 135 General Appearance Alert, Cooperative, No acute distress HEENT Normal exam Lungs Normal air movement, has wheezes and crackles in lungs non focal bilaterally Cardiovascular Regular rate and rhythm, No murmurs, gallops, rubs Abdomen Soft, No tenderness Extremities No edema LAB Results Laboratory Tests 09/01 05 Chemistry Plasma Sodium (136 - 145 mmol/L) 136 Plasma Potassium (3.5 - 5.1 mmol/L) 3.3 Plasma Chloride (98 - 107 mmol/L) 99 CO2 (Enzymatic) (21 - 32 mmol/L) 30 BUN (7 - 18 mg/dL) 10 Creatinine (0.6 - 1.3 mg/dL) 0.8 Est GFR ( Amer) (mL/min) >60 Est GFR (Non-Af Amer) (mL/min) >60 Glucose (70 - 110 mg/dL) 116 Plasma Calcium (8.5 - 10.1 mg/dL) 8.1 Hematology WBC (4.5 - 11.5 K/uL) 4.7 RBC (4.00 - 5.20 M/uL) 4.21 Hgb (12.0 - 16.0 gm/dL) 12.2 Hct (36.0 - 46.0 %) 37.4 MCV (80 - 100 fL) 89 MCH (26 - 34 pg) 29 RDW (11.6 - 14.8 %) 14.6 Neut % (Auto) (50 - 75 %) 75.7 Lymph % (Auto) (25 - 40 %) 13.4 [place] % (Auto) (3 - 14 %) 9.3 Eos % (Auto) (0 - 4 %) 1.4 Baso % (Auto) (0 - 2 %) 0.2 Plt Count, EDTA (150 - 400 K/uL) 129 PUBS MCHC (31 - 37 g/dL) 33 Microbiology Date/Time Procedure - Status Source Growth 08/31 1844 MRSA Screen - RECD NASAL Assessment and Plan Problem List 1. Pneumonia Plan Has pneumonia and is on abx. Seems to be coughing less but some blood in sputum. Is on xarelto for afib. 2. Atrial fibrillation Plan On xarelto and stable. Has hypertrophic cardiomyopathy 3. Hypertrophic cardiomyopathy Plan I have discussed with cardiology and try to avoid use of diuretics but more use betablocker this condition.
[2016-09-01 10:14] VITALS: BP 118/56
[2016-09-01 14:48] VITALS: BP 130/62
[2016-09-01 18:10] VITALS: BP 122/57
[2016-09-01 23:06] VITALS: BP 107/67
[2016-09-02] VITALS (7 sets, daily range): BP systolic 108–145; BP diastolic 44–64
--- NOTE | 2016-09-02 06:08 | DIAGNOSTIC IMAGING REPORT ---
PROCEDURE: XR CHEST 1 VIEW INDICATION: Follow up pneumonia and pulmonary edema. TECHNIQUE: Portable AP view (0500 hours). COMPARISON: Compared to chest x-ray on 08/31/2016 and 08/30/2016. FINDINGS: There is mild worsening in mild parenchymal changes at the lung bases. Heart and mediastinum are normal. Left subclavian pacemaker/defibrillator. Thorax is normal. IMPRESSION: 1. Mild worsening in mild parenchymal changes lung bases compatible with pneumonia (e.g., aspiration, bacterial, Mycoplasma). 2. Left subclavian pacemaker/defibrillator.
--- NOTE | 2016-09-02 08:55 | Progress Note ---
Subjective General Elsy is a 76-year-old lady admitted with pneumonia and an element of congestive heart failure. She has underlying atrial fibrillation and IHSS. She is currently on ceftriaxone and azithromycin. She feels that her breathing is getting better. She denies coughing up a great deal of sputum. She is not having any major problems with chest pain. She is able to ambulate around the room a little bit. She has been able to rest okay. She continues to require supplemental oxygen. She has not had problems with swelling of her ankles. Constitutional Fever (low-grade fever in the afterno), Weakness, Malaise. Denies: Chills, Sweats. Eyes Denies: Vision Change. ENT Denies: Ear Pain, Mouth Pain, Throat Swelling. Respiratory Cough, SOB w/exertion, Wheezing, Sputum (minimal sputum production so f). Cardiovascular Denies: Chest Pain, Palpitations, PND, Edema. Gastrointestinal Denies: Nausea, Vomiting, Abdominal Pain, Diarrhea. Genitourinary Denies: Dysuria, Frequency, Incontinence, Hematuria. Skin Denies: Rash. Neurological Denies: Numbness, Incoordination, Change in speech, Confusion, Seizures. Physical Exam Vital Signs / I&Os Vital Signs Date Time Temp Pulse Resp B/P Pulse O2 O2 Flow FiO2 Ox Delivery Rate 09/02 0800 123/55 09/02 0759 Nasal 2.0 Cannula 09/02 0701 99.0 70 21 110/44 95 Nasal 2.0 Cannula 09/02 0244 98.2 73 22 145/64 90 Nasal 2.0 Cannula 09/02 0005 2.0 09/01 2306 98.6 70 22 107/67 90 Nasal 2.0 Cannula 09/01 2009 Nasal 2.0 Cannula 09/01 2000 98.6 09/01 1810 100.8 76 20 122/57 96 Nasal 2.0 Cannula 09/01 1500 2.0 09/01 1448 100.0 71 24 130/62 100 Nasal 2.0 Cannula 09/01 1014 99.0 71 24 118/56 94 Nasal 2.0 Cannula 09/01 0940 2.0 I&O 09/01 0800 09/01 1600 09/02 0000 Intake Total 0 590 1125 Output Total 067 524 9641 Balance -450 -310 125 General Appearance Alert, Oriented X3, Cooperative, No acute distress, frequent coughing. HEENT Normal exam Lungs bibasilar rales about one third of the way up. Upper lung paredes show some rhonchi but are fairly clear. There is no wheezing presently. Cardiovascular Normal exam (currently patient has a regula), currently patient has a regular heart rhythm. She does have her period to to 3/6 murmur at the left sternal border. She also has either an S3 sound or a midsystolic click related to her mitral valve IHSS problems. Abdomen Normal bowel sounds, Soft, No tenderness, No guarding, No rebound Extremities No cyanosis, No edema, No tenderness Skin No Rashes Neurological Normal exam, Normal gait, Normal speech, Normal tone, Sensation intact, Cranial nerves intact Psych/Mental Status Mental status normal, Mood normal LAB Results Laboratory Tests 09/02 0509 Chemistry Plasma Sodium (136 - 145 mmol/L) 138 Plasma Potassium (3.5 - 5.1 mmol/L) 3.2 Plasma Chloride (98 - 107 mmol/L) 100 CO2 (Enzymatic) (21 - 32 mmol/L) 32 BUN (7 - 18 mg/dL) 9 Creatinine (0.6 - 1.3 mg/dL) 0.6 Est GFR ( Amer) (mL/min) >60 Est GFR (Non-Af Amer) (mL/min) >60 Glucose (70 - 110 mg/dL) 96 Plasma Calcium (8.5 - 10.1 mg/dL) 8.2 Hematology WBC (4.5 - 11.5 K/uL) 4.7 RBC (4.00 - 5.20 M/uL) 4.09 Hgb (12.0 - 16.0 gm/dL) 12.0 Hct (36.0 - 46.0 %) 36.3 MCV (80 - 100 fL) 89 MCH (26 - 34 pg) 29 RDW (11.6 - 14.8 %) 14.2 Neut % (Auto) (50 - 75 %) 69.1 Lymph % (Auto) (25 - 40 %) 17.0 [place] % (Auto) (3 - 14 %) 11.0 Eos % (Auto) (0 - 4 %) 2.6 Baso % (Auto) (0 - 2 %) 0.3 Plt Count, EDTA (150 - 400 K/uL) 123 PUBS MCHC (31 - 37 g/dL) 33 Assessment and Plan Problem List 1. Pneumonia Plan Clinically patient is improving with improved oxygen saturations. Chest x-ray shows increased congestion. This is probably due to rehydration effect. White blood cell count shows percentage of neutrophils decreasing. Continue ceftriaxone and azithromycin. Continue inpatient care due to need for oxygen and fragile state due to underlying major heart problems related to IHSS. 2. Hypertrophic cardiomyopathy Plan Patient has had the metoprolol dose increased. She seems to be tolerating this okay. She is not hypotensive or bradycardic. We'll continue with this dose. 3. Atrial fibrillation Qualifiers Atrial fibrillation type: chronic Qualified Code: I48.2 - Chronic atrial fibrillation Plan Currently heart rhythm seems to be mostly sinus. We'll continue current dose of metoprolol and will keep up with losartan and will continue Xarelto 4. Hypokalemia Plan Due to the furosemide. I am ordering potassium 10 mEq orally twice daily. Recheck chemistry profile tomorrow morning. E&M Codes Rounding: Inpt-Moderate/[id number]
[2016-09-03 04:18] VITALS: BP 142/61
[2016-09-03 06:39] VITALS: BP 129/51
--- NOTE | 2016-09-03 07:22 | Progress Note ---
Subjective General 76 y.o female with hypertrophic cardiomyopathy, a fib on xarelto who has pneumonia. Still on 02 and dropping sats at night. Still weak and coughing. States she isn't feeling well enough for going home yet. Physical Exam Vital Signs / I&Os Vital Signs Date Time Temp Pulse Resp B/P Pulse O2 O2 Flow FiO2 Ox Delivery Rate 09/03 0639 99.0 70 18 129/51 99 Nasal 2.0 Cannula 09/03 0418 99.7 75 23 142/61 94 Nasal 2.0 Cannula 09/02 2322 2.0 09/02 2237 99.7 74 18 144/52 94 Nasal 2.0 Cannula 09/02 1956 Nasal 2.0 Cannula 09/02 1939 2.0 09/02 1818 99.3 81 20 108/44 97 Nasal 2.0 Cannula 09/02 1653 2.0 09/02 1428 99.3 70 20 121/60 98 Nasal 2.0 Cannula 09/02 1045 99.5 71 20 111/46 95 Nasal 2.0 Cannula 09/02 0800 123/55 09/02 0759 Nasal 2.0 Cannula 09/02 0745 2.0 I&O 09/03 0000 09/02 1600 09/02 0800 Intake Total 640 700 Output Total 1250 775 350 Balance -610 -75 -350 General Appearance Alert, Cooperative HEENT Normal exam Lungs wheezing mild and crackles bilaterally, coughing regularly Cardiovascular Regular rate and rhythm Abdomen Soft, No tenderness Extremities No edema LAB Results Laboratory Tests 09/03 0405 Chemistry Plasma Sodium (136 - 145 mmol/L) 140 Plasma Potassium (3.5 - 5.1 mmol/L) 3.9 Plasma Chloride (98 - 107 mmol/L) 102 CO2 (Enzymatic) (21 - 32 mmol/L) 35 BUN (7 - 18 mg/dL) 7 Creatinine (0.6 - 1.3 mg/dL) 0.6 Est GFR ( Amer) (mL/min) >60 Est GFR (Non-Af Amer) (mL/min) >60 Glucose (70 - 110 mg/dL) 103 Plasma Calcium (8.5 - 10.1 mg/dL) 8.1 Plasma Magnesium (1.8 - 2.4 mg/dL) 2.1 Assessment and Plan Problem List 1. Atrial fibrillation Qualifiers Atrial fibrillation type: chronic Qualified Code: I48.2 - Chronic atrial fibrillation Plan Patient is stable at this time. 2. Hypertrophic cardiomyopathy Plan Has chf related to this and is tolerating the beta jocy at 100mg. Will continue this. very low dose on lasix. No change. 3. Hypokalemia Plan Resolved. 4. Pneumonia Plan Is doing ok, cxr yesterday a little worse, has some blood tinge in sputum. Has continued sob, low grade temp. Will watch another day or 2 and re check on cxr 1 -2 days.
[2016-09-03 11:36] VITALS: BP 105/41
[2016-09-03 14:41] VITALS: BP 131/46
[2016-09-03 18:29] VITALS: BP 149/65
[2016-09-03 22:50] VITALS: BP 125/43
[2016-09-04 02:28] VITALS: BP 103/40
[2016-09-04 07:52] VITALS: BP 125/59
--- NOTE | 2016-09-04 08:25 | Progress Note ---
Subjective General Patient is a 76 y.o. female that has hypertrophic cardiomyopathy and is with pneumonia on admit. Slowly improving. Feels a little better this am. Coughing up a lot of mucus but hard. Feels a little better overall. No cp, no fevers. Physical Exam Vital Signs / I&Os Vital Signs Date Time Temp Pulse Resp B/P Pulse O2 O2 Flow FiO2 Ox Delivery Rate 09/04 0752 99.7 70 18 125/59 93 Nasal 2.0 Cannula 09/04 0718 2.0 09/04 0228 99.7 65 16 103/40 97 Nasal 2.0 Cannula 09/03 2328 2.0 09/03 2250 99.0 71 16 125/43 99 Nasal 2.0 Cannula 09/03 2057 2.0 09/03 1945 Nasal 1.0 Cannula 09/03 1829 99.9 75 20 149/65 95 Nasal 2.0 Cannula 09/03 1608 2.0 09/03 1441 99.1 72 20 131/46 97 09/03 1136 99.3 72 18 105/41 95 Nasal 2.0 Cannula I&O 09/04 0000 09/03 1600 09/03 0800 Intake Total 590 360 Output Total 1000 450 550 Balance -410 -90 -550 General Appearance Alert, Cooperative Lungs coarse BS with crackles and wheezes mild Cardiovascular Regular rate and rhythm, 3/6 murmur at the right upper sternal border. Extremities No edema Assessment and Plan Problem List 1. Pneumonia Plan On abx, coughing up mucus better, will try acapella spirometry. Will also have d /c planning and PT eval ? d/c today or tomorrow on O2 at home ? home PT. 2. Hypertrophic cardiomyopathy Plan continue meds no change at this time. 3. Atrial fibrillation Qualifiers Atrial fibrillation type: chronic Qualified Code: I48.2 - Chronic atrial fibrillation Plan Is doing ok on xarelto.
[2016-09-04 11:25] VITALS: BP 121/62
[2016-09-04] MEDS ORDERED: CEPHALEXIN500 MG PO (12:57)
--- NOTE | 2016-09-04 12:59 | Provider's Discharge Care Plan ---
Problem, Goal, Plan Problem List 1. Atrial fibrillation Instructions: Take meds as directed 2. Pneumonia Instructions: Take meds as directed
--- NOTE | 2016-09-04 12:59 | Provider's Discharge Care Plan ---
Problem, Goal, Plan Problem List 1. Atrial fibrillation Instructions: Take meds as directed 2. Pneumonia Instructions: Take meds as directed
--- NOTE | 2016-09-04 21:18 | ED MAR SUMMARY ---
..... Medication Administration Record [facility] [address] [place] [address] Patient: GAVI HARRIS Visit ID: [id number] 76y, F Weight: 74.8 kg Height/Length: 64 in BMI: 28.3 ALLERGIES: No Known Drug Allergy Given 04:50 08/31/2016 Jose Miguel Coffey, Medication Administered: ALBUTEROL NEB W ATROVENT, Dose: 1 unit dose Nebulizer Neb [place]. Medication Ordered: Albuterol Neb w Atrovent 1 unit dose (NOW). Given 05:50 08/31/2016 Benjamin Haro R.N. Medication Administered: LASIX [IVP], Dose: 20 mg IVP over 2 minute(s), Site: #1 left AC. Medication Ordered: Lasix IV 20 mg (NOW).
--- NOTE | 2016-09-04 21:18 | ED MED RECONCILIATION SUMMARY ---
Patient: GAVI HARRIS Medication Reconciliation Report [facility] VisitID: [id number] [address] [place] [address] 76y, F Registration Date/Time: 08/31/2016 Weight: 74.8 kg Height/Length: 64 in. BMI: 28.3 ALLERGIES: No Known Drug Allergy The patient's Home Medications are listed below: THE FOLLOWING MEDICATIONS NEED TO BE RECONCILED: Amiodarone HCL Oral, 1 tab daily, pt unsure of dose FLUoxetine HCl Oral 40 mg, daily Furosemide Oral 20 mg, daily Losartan Potassium Oral 50 mg, daily Metoprolol Tartrate Oral 50 mg, MiraLax Oral PredniSONE Oral 40 mg, daily Ventolin HFA Inhalation Xarelto Oral (20 mg) 1 tablet The source(s) of the original Home Medication information: Not obtained. The following Medications were given to the patient in the Emergency Department: ALBUTEROL NEB W ATROVENT Neb [place] 1 unit dose, administered: 08/31/2016 4:50:00 AM Lasix [IVP] IVP 20 mg, administered: 08/31/2016 5:50:00 AM The following Medications were prescribed to the patient: None.
--- NOTE | 2016-09-04 21:18 | ED DISCHARGE INSTRUCTIONS ---
Patient: GAVI HARRIS General Instructions [facility] VisitID: [id number] [address] [place] [address] 76y, F Registration Date/Time: 08/31/2016 Congestive heart failure. Pneumonia. (Electronically signed by Howie Garcia MD 09/04/2016 21:17)
--- NOTE | 2016-09-04 21:18 | ED DISCHARGE INSTRUCTIONS ---
Patient: GAVI HARRIS General Instructions [facility] VisitID: [id number] [address] [place] [address] 76y, F Registration Date/Time: 08/31/2016 Congestive heart failure. Pneumonia. (Electronically signed by Howie Garcia MD 09/04/2016 21:17)
--- NOTE | 2016-09-04 21:18 | ED MAR SUMMARY ---
..... Medication Administration Record [facility] [address] [place] [address] Patient: GAVI HARRIS Visit ID: [id number] 76y, F Weight: 74.8 kg Height/Length: 64 in BMI: 28.3 ALLERGIES: No Known Drug Allergy Given 04:50 08/31/2016 Jose Miguel Coffey, Medication Administered: ALBUTEROL NEB W ATROVENT, Dose: 1 unit dose Nebulizer Neb [place]. Medication Ordered: Albuterol Neb w Atrovent 1 unit dose (NOW). Given 05:50 08/31/2016 Benjamin Haro R.N. Medication Administered: LASIX [IVP], Dose: 20 mg IVP over 2 minute(s), Site: #1 left AC. Medication Ordered: Lasix IV 20 mg (NOW).
--- NOTE | 2016-09-04 21:18 | ED MED RECONCILIATION SUMMARY ---
Patient: GAVI HARRIS Medication Reconciliation Report [facility] VisitID: [id number] [address] [place] [address] 76y, F Registration Date/Time: 08/31/2016 Weight: 74.8 kg Height/Length: 64 in. BMI: 28.3 ALLERGIES: No Known Drug Allergy The patient's Home Medications are listed below: THE FOLLOWING MEDICATIONS NEED TO BE RECONCILED: Amiodarone HCL Oral, 1 tab daily, pt unsure of dose FLUoxetine HCl Oral 40 mg, daily Furosemide Oral 20 mg, daily Losartan Potassium Oral 50 mg, daily Metoprolol Tartrate Oral 50 mg, MiraLax Oral PredniSONE Oral 40 mg, daily Ventolin HFA Inhalation Xarelto Oral (20 mg) 1 tablet The source(s) of the original Home Medication information: Not obtained. The following Medications were given to the patient in the Emergency Department: ALBUTEROL NEB W ATROVENT Neb [place] 1 unit dose, administered: 08/31/2016 4:50:00 AM Lasix [IVP] IVP 20 mg, administered: 08/31/2016 5:50:00 AM The following Medications were prescribed to the patient: None.
--- NOTE | 2016-09-07 14:14 | DISCHARGE SUMMARY ---
ADMIT DATE: 09/01/2016 DISCHARGE DATE: 09/04/2016 ADMITTING DIAGNOSES: 1. Hypoxia, shortness of breath, cough, fever, weakness, congestive heart failure, left bundle branch block DISCHARGE DIAGNOSES: 1. Hypoxia, shortness of breath, cough, fever, weakness, congestive heart failure, left bundle branch block 2. Likely viral process HOSPITAL COURSE: This is a 76-year-old female with long progressive history of heart and lungs that is not great due to hypertrophic cardiomyopathy. She was admitted with CHF and shortness of breath, fever, likely viral process. She had an echocardiogram that showed continuation of hypertrophic cardiomyopathy. She was treated with beta blockers for this with consultation with Dr. Weems her chief ultrasound technologist. Also, she was treated with a small dose of Lasix and inhalers. She had diffuse wheezes, improved during the hospitalization and at the time of discharge on the , she was feeling a little bit better. She was still coughing up a fair amount of mucus. Her white count was normal. During the entire hospitalization, had an okay white count, as well as normal hematocrit. Her potassium was a little low, which was replaced. Her vital signs at time of discharge, temperature was 99.0, respirations 18, blood pressure 121/62, and a heart rate of 66. She was saturating 96% on 2 liters and dropped down into the mid 80s with ambulation on room air. She was discharged to home with home health and O2 nasal cannula. DISCHARGE INSTRUCTIONS/MEDICATIONS: 1. Discharge medications included cephalexin 500 mg p.o. t.i.d. x7 days. 2. Xarelto 20 mg p.o. daily. 3. Spiriva Respimat 1 inhalation daily. 4. Furosemide 20 mg p.o. daily. 5. Prednisone 40 mg p.o. daily x3 days. 6. Fluoxetine 40 mg p.o. daily. 7. Losartan 50 mg p.o. daily. 8. MiraLAX 17 g p.o. daily. 9. Ventolin 2 puffs q.4 hours p.r.n. shortness of breath. 10. Metoprolol 100 mg of XL p.o. daily. 11. The patient to follow up in the clinic in 1-3 days, sometime later this week , and sooner if indicated. 12. The patient to essentially continue with her home medications with mild changes including her beta-jocy increase, a little bit of Lasix and also the cephalexin.
== END 2016-09-04 15:00 | disposition home health service (06) | DRG 291 ==
LOC: ED SRH 04:23 → TRANS SRH 07:46 → CC SRH 07:46
PROVIDERS: ADMIT Emergency Medicine
DX: I50.9 Heart failure, unspecified (principal); J44.0 Chronic obstructive pulmonary disease with (acute) lower respiratory infection; J12.9 Viral pneumonia, unspecified; R09.02 Hypoxemia; I42.2 Other hypertrophic cardiomyopathy; I48.2 Chronic atrial fibrillation; E87.6 Hypokalemia; R11.2 Nausea with vomiting, unspecified; I44.7 Left bundle-branch block, unspecified; Z79.01 Long term (current) use of anticoagulants; Z86.711 Personal history of pulmonary embolism
CPT/HCPCS: 85241; 90004; 90047; 90065; 90074; 90100; 90469; 90616; 91320; 91400; 92132; 92610; 92720; 93004; 94001; 94060; 95059